=== PATIENT | male | born 1980 | race Caucasian/White ===

== ENCOUNTER 2018-12-17 01:55 | Emergency (ER) | payer SELFPAY ==
[2018-12-17] MEDS: ONDANSETRON (ODT) 4 MG TAB ODT (02:49)
[2018-12-17] MEDS: LORAZEPAM 0.5 MG TAB PO (02:49)
[2018-12-17] MEDS: RANITIDINE 150 MG TAB PO (03:26)
== END 2018-12-17 03:50 | disposition home or self-care (01) ==
LOC: E/R 01:55
DX: F10.10 Alcohol abuse, uncomplicated (principal); R11.2 Nausea with vomiting, unspecified
CPT/HCPCS: 99284